=== PATIENT | female | born 1970 | race Hispanic/Latino ===

== ENCOUNTER 2019-09-24 23:02 | Emergency (ER) | payer SELFPAY ==
[2019-09-24 23:45] LABS: #Basophils 0.1 thou/uL (0.0-0.2); #Eosinphils 0.1 thou/uL (0.0-0.7); #Lymphocytes 1.5 thou/uL (1.20-3.40); #Neutrophils 6.2 thou/uL (1.40-6.50); %Basophils 0.7 % (0.0-1.0); %Eosinophils 0.9 % (0.0-10.0); %Lymphocytes 17.2 % (21.0-51.0); %Monocytes 10.8 % (0.0-10.0); %Neutrophils 70.4 % (42.0-75.0); Hemoglobin 13.8 g/dL (12.0-16.0); Mean Corpuscular HGB CONC 32.5 g/dL (32.0-36.0); Mean Corpuscular Hemoglobin 31.7 pg (27.0-31.0); Mean Corpuscular Volume 97.5 fL (78.0-98.0); Mean Platelet Volume 8.4 fL (7.4-10.4); Platelet Count 289 thou/uL (130-400); RBC Distribution Width 12.1 % (11.5-14.5); Red Blood Cell (RBC) Count 4.36 mill/uL (4.20-5.40); White Blood Cell (WBC) Count 8.7 thou/uL (4.8-10.8)
[2019-09-25 00:09] LABS: ALT (SGPT) 16 U/L (8-55); AST (SGOT) 19 U/L (5-34); Albumin 4.2 g/dL (3.5-5.0); Alkaline Phosphatase 103 U/L (40-110); Anion Gap 11 mmol/L (10-20); BUN (Urea Nitrogen) 11 mg/dL (7.0-18.7); Bilirubin, Total 0.2 mg/dL (0.2-1.2); Calc. Creatinine Clearance 0 mL/min (70-130); Carbon Dioxide 22 mmol/L (22-29); Chloride 109 mmol/L (98-107); Estimated GFR-MDRD 89; Glucose 102 mg/dL (70-105); Potassium 3.9 mmol/L (3.5-5.1); Protein, Total 7.2 g/dL (6.0-8.3); Sodium 138 mmol/L (136-145)
== END 2019-09-25 03:15 | disposition home or self-care (01) ==
LOC: ERS 23:02
DX: R11.0 Nausea (principal); M79.7 Fibromyalgia
CPT/HCPCS: 36415; 80053; 85025; 93005

== ENCOUNTER 2020-01-23 09:43 | Outpatient (CLI) | payer OTHER | END 2020-01-23 09:44 | disposition home or self-care (01) | LOC: CTENTCT 09:43 | PROVIDERS: ATTEND Specialist | DX: R51.9 Headache, unspecified (principal) | CPT/HCPCS: 70486 ==

== ENCOUNTER 2020-02-26 09:22 | Outpatient (CLI) | payer OTHER ==
--- NOTE | 2020-02-26 12:43 | MRI ---
MRI BRAIN WITH AND WITHOUT IV CONTRAST: HISTORY: A 49-year-old female with muscle tension headaches. COMPARISON: None. FINDINGS: No restricted diffusion is seen. No evidence of infarct, hemorrhage, mass, midline shift, or abnorma l extraaxial fluid collections are seen. The ventricular size is normal and the basilar cisterns are patent. No abnormal post contrast enhancement is seen. The visualized paranasal sinuses and mastoi d air cells are well aerated. No tonsillar herniation is seen. IMPRESSION: No evidence of acute intracranial process or mass. POS: AH
[2020-02-26] MEDS ORDERED: Magnevist 469MG/ML 20 ML VIAL ONE (13:33)
== END 2020-02-26 09:23 | disposition home or self-care (01) ==
LOC: BICMRI 09:22
PROVIDERS: ATTEND Psychiatry & Neurology Neurology
DX: G44.209 Tension-type headache, unspecified, not intractable (principal)
CPT/HCPCS: 70553; A9579

== ENCOUNTER 2020-07-08 07:30 | Outpatient (CLI) | payer OTHER ==
[2020-07-08] MEDS ORDERED: Iopamidol-370 76% 500 ML 1 ML ONE (08:51)
== END 2020-07-08 07:31 | disposition home or self-care (01) ==
LOC: BICCT 07:30
PROVIDERS: ATTEND Internal Medicine Gastroenterology
DX: R63.4 Abnormal weight loss (principal); R62.7 Adult failure to thrive; K63.89 Other specified diseases of intestine
CPT/HCPCS: 74177; Q9967

== ENCOUNTER 2020-07-14 09:44 | Outpatient (CLI) | payer OTHER ==
[2020-07-14 21:45] LABS: SARS-CoV-2 PCR by NAA Not Detected (NotDetected)
== END 2020-07-14 09:45 | disposition home or self-care (01) ==
LOC: LABBT 09:44
PROVIDERS: ATTEND Internal Medicine Gastroenterology
DX: Z01.812 Encounter for preprocedural laboratory examination (principal); Z20.822 Contact with and (suspected) exposure to COVID-19
CPT/HCPCS: 87635; U0003; U0005

== ENCOUNTER 2020-08-01 08:54 | Outpatient (CLI) | payer OTHER | END 2020-08-01 08:55 | disposition home or self-care (01) | LOC: RAD 08:54 | PROVIDERS: ATTEND Internal Medicine Gastroenterology | DX: K50.00 Crohn's disease of small intestine without complications (principal) | CPT/HCPCS: 74250 ==

== ENCOUNTER 2020-08-04 12:14 | Outpatient (CLI) | payer OTHER | END 2020-08-04 12:15 | disposition home or self-care (01) | LOC: BICRAD 12:14 | PROVIDERS: ATTEND Physician Assistant Medical | DX: K52.9 Noninfective gastroenteritis and colitis, unspecified (principal); R63.4 Abnormal weight loss | CPT/HCPCS: 71046 ==

== ENCOUNTER 2021-06-22 08:49 | Outpatient (CLI) | payer OTHER | END 2021-06-22 08:50 | disposition home or self-care (01) | LOC: BICMRI 08:49 | PROVIDERS: ATTEND Plastic Surgery | DX: T85.43XA Leakage of breast prosthesis and implant, initial encounter (principal); T85.44XA Capsular contracture of breast implant, initial encounter; N63.20 Unspecified lump in the left breast, unspecified quadrant | CPT/HCPCS: A9577; C8908 ==

== ENCOUNTER 2021-06-24 14:57 | Outpatient (CLI) | payer SELFPAY ==
[2021-06-25 12:18] LABS: SARS-CoV-2 PCR by NAA Not Detected (NotDetected)
== END 2021-06-24 14:58 | disposition home or self-care (01) ==
LOC: LABBT 14:57
PROVIDERS: ATTEND Plastic Surgery
DX: Z20.822 Contact with and (suspected) exposure to COVID-19 (principal)
CPT/HCPCS: U0003; U0005

== ENCOUNTER 2021-06-26 10:50 | Day surgery (SDC) | payer OTHER ==
[2021-06-25 11:37] VITALS: BMI 15.0
[2021-06-26] MEDS ORDERED: EPINEPHrine 1 MG/ML AMP ONE (11:44)
[2021-06-26] MEDS ORDERED: Bupivacaine 0.25% 10 ML VIAL ONE (11:44)
[2021-06-26] MEDS ORDERED: Promethazine HCl 25 MG/ML VIAL ONE (12:00)
[2021-06-26] MEDS ORDERED: Fentanyl 250 MCG/5 ML VIAL ONE (12:00)
[2021-06-26 13:34] LABS: INR-International Normal Ratio 1.1
[2021-06-26 13:35] LABS: PTT 30.2 sec (22.9-36.1)
[2021-06-26 13:37] LABS: EPI 92 SEC (67-199)
[2021-06-26 13:39] LABS: Platelet Count 284 thou/uL (130-400)
[2021-06-29 10:10] LABS: Factor VIII Test 202.3 % ACTIVE (56-157)
== END 2021-06-26 13:10 | disposition home or self-care (01) ==
LOC: SDC 10:50
PROVIDERS: ATTEND Plastic Surgery
DX: Z41.1 Encounter for cosmetic surgery (principal); Z53.8 Procedure and treatment not carried out for other reasons
CPT/HCPCS: 85049; 85240; 85245; 85246; 85247; 85610; 85730; J0171; J2550; J3010; J3370; S0020

== ENCOUNTER 2021-07-09 15:48 | Emergency (ER) | payer SELFPAY ==
[2021-07-09 16:38] LABS: #Eosinphils 0.1 thou/uL (0.0-0.7); #Lymphocytes 1.5 thou/uL (1.20-3.40); #Monocytes 0.7 thou/uL (0.11-0.59); #Neutrophils 4.6 thou/uL (1.40-6.50); %Basophils 0.7 % (0.0-1.0); %Eosinophils 1.1 % (0.0-10.0); %Lymphocytes 21.3 % (21.0-51.0); %Monocytes 10.4 % (0.0-10.0); %Neutrophils 66.6 % (42.0-75.0); Mean Corpuscular HGB CONC 33.8 g/dL (32.0-36.0); Mean Corpuscular Volume 97.6 fL (78.0-98.0); Mean Platelet Volume 8.9 fL (7.4-10.4); Platelet Count 288 thou/uL (130-400); RBC Distribution Width 11.4 % (11.5-14.5); Red Blood Cell (RBC) Count 3.65 mill/uL (4.20-5.40); White Blood Cell (WBC) Count 6.9 thou/uL (4.8-10.8)
[2021-07-09 16:57] LABS: ALT (SGPT) 15 U/L (8-55); AST (SGOT) 19 U/L (5-34); Albumin 4.2 g/dL (3.5-5.0); Alkaline Phosphatase 105 U/L (40-110); Anion Gap 12 mmol/L (10-20); BUN (Urea Nitrogen) 13 mg/dL (9.8-20.1); Bilirubin, Total 0.5 mg/dL (0.2-1.2); Calc. Creatinine Clearance 0 mL/min (70-130); Calcium 10.2 mg/dL (7.8-10.44); Carbon Dioxide 25 mmol/L (22-29); Chloride 103 mmol/L (98-107); Globulin 3.1 g/dL (2.4-3.5); Glucose 98 mg/dL (70-105); Potassium 3.8 mmol/L (3.5-5.1); Protein, Total 7.3 g/dL (6.0-8.3); Sodium 136 mmol/L (136-145)
[2021-07-09 19:05] LABS: Bacteria/HPF None Seen HPF (None Seen); Bilirubin Negative (Negative); Blood, Urine Trace (Negative); Clarity Clear (Clear); Glucose, Urine (Dipstick) Normal (Negative); Ketone, Urine Negative (Negative); Leukocyte Negative Leu/uL (Negative); Nitrite Negative (Negative); Protein, Urine (Dipstick) Negative (Neg-Trace); RBC/HPF 0-3 HPF (0-3); Specific Gravity, Urine 1.006 (1.002-1.036); Squamous Epithelial 0-3 HPF (0-3); Urobilinogen Normal mg/dL (Less than 2); WBC/HPF 0-3 HPF (0-3)
== END 2021-07-09 21:51 | disposition short-term general hospital (02) ==
LOC: ERS 15:48
DX: T81.32XA Disruption of internal operation (surgical) wound, not elsewhere classified, initial encounter (principal)
CPT/HCPCS: 36415; 80053; 81003; 81015; 85025; 99283

== ENCOUNTER 2021-07-13 08:17 | Outpatient (CLI) | payer OTHER | END 2021-07-13 08:18 | disposition home or self-care (01) | LOC: ULT 08:17 | PROVIDERS: ATTEND Physician Assistant Medical | DX: R10.13 Epigastric pain (principal); K82.4 Cholesterolosis of gallbladder | CPT/HCPCS: 76705; 78264; A9541 ==

== ENCOUNTER 2021-07-23 13:53 | Outpatient (CLI) | payer OTHER ==
[2021-07-24 00:17] LABS: SARS-CoV-2 PCR by NAA Not Detected (NotDetected)
== END 2021-07-23 13:54 | disposition home or self-care (01) ==
LOC: LABBT 13:53
PROVIDERS: ATTEND Plastic Surgery
DX: Z01.818 Encounter for other preprocedural examination (principal); T85.44XA Capsular contracture of breast implant, initial encounter; Z20.822 Contact with and (suspected) exposure to COVID-19
CPT/HCPCS: 93005; 93010; U0003; U0005

== ENCOUNTER 2021-07-24 14:15 | Observation (INO) | payer SELFPAY ==
[2021-07-23 10:58] VITALS: BMI 15.8
[2021-07-24] MEDS ORDERED: Heparin 5,000 UNITS/ML VIAL ONE (14:33)
[2021-07-24] MEDS ORDERED: fentaNYL Citrate/PF 100 MCG/2 ML SYRINGE ONE (14:38)
[2021-07-24] MEDS ORDERED: Famotidine/PF 20 mg/2ml Vial ONE (14:38)
[2021-07-24] MEDS ORDERED: EPINEPHrine 1 MG/ML AMP ONE (14:39)
[2021-07-24] MEDS ORDERED: Bupivacaine 0.25% 10 ML VIAL ONE (14:39)
[2021-07-24] MEDS ORDERED: Tranexamic Acid 1,000 MG/10 ML VIAL ONE (14:48)
[2021-07-24] MEDS ORDERED: CEFAZOLIN 2 GM VIAL ONE (15:05)
[2021-07-24] MEDS ORDERED: Sodium Chloride 0.9% 100 ML ONE (15:05)
[2021-07-24] MEDS ORDERED: Glycopyrrolate 0.2 MG/ML 5 ML SYRINGE ONE (15:19)
[2021-07-24] MEDS ORDERED: Dexamethasone 20 MG/5 ML VIAL ONE (15:19)
[2021-07-24] MEDS ORDERED: Ondansetron PF 4 MG/2 ML Vial ONE (15:19)
[2021-07-24] MEDS ORDERED: Lidocaine 1% PF 5 ML VIAL ONE (15:19)
[2021-07-24] MEDS ORDERED: PROPOFOL 200 MG/20 ML VIAL ONE (15:19)
[2021-07-24] MEDS ORDERED: Neomycin-Polymyxin 1 ML AMP ONE (16:07)
[2021-07-24] MEDS ORDERED: HYDROmorphone 0.5 MG/0.5 ML SYRINGE ONE ×2 (16:19→16:20)
[2021-07-24] MEDS ORDERED: Ondansetron HCl/PF 4 MG/2 ML Vial IVP PRN (17:23)
[2021-07-24] MEDS ORDERED: HYDROmorphone 2 MG/ML VIAL SLOW IVP PRN (17:23)
[2021-07-24] MEDS ORDERED: Promethazine HCl 25 MG/ML VIAL IM PRN (17:23)
[2021-07-24] MEDS ORDERED: Meperidine HCl/PF 25 MG/ML VIAL SLOW IVP PRN (17:23)
[2021-07-24] MEDS ORDERED: Promethazine HCl 25 MG/ML VIAL IVPB PRN (17:23)
[2021-07-24] MEDS ORDERED: Morphine Sulfate 2 MG/ML SYRINGE SLOW IVP PRN (17:23)
[2021-07-24] MEDS ORDERED: Milk Of Magnesia 30 ML UDCUP PO PRN (19:13)
[2021-07-24] MEDS ORDERED: HYDROcodone/Acetaminophen 5/325 mg Tablet PO PRN ×2 (19:15)
[2021-07-24] MEDS ORDERED: Benzonatate 100 MG CAP PO PRN ×2 (19:15)
[2021-07-24] MEDS ORDERED: Simethicone Chewable 80 MG TAB PO PRN (19:15)
[2021-07-24] MEDS ORDERED: Metoclopramide HCl 10 MG/2 ML VIAL IVP PRN (19:15)
[2021-07-24] MEDS ORDERED: Calcium Carbonate 500 MG ChewTAB PO PRN ×2 (19:15)
[2021-07-24] MEDS ORDERED: Ondansetron PF 4 MG/2 ML Vial IVP PRN (19:15)
[2021-07-24] MEDS ORDERED: Cepastat Lozenges 1 LOZ PO PRN (19:15)
[2021-07-24] MEDS ORDERED: GUAIFENESIN DM SF 5 ML UDCUP PO PRN (19:15)
[2021-07-24] MEDS ORDERED: Promethazine HCl 12.5 MG in Sodium Chloride 0.9% 50 ML IVPB PRN (19:15)
[2021-07-24] MEDS ORDERED: Zolpidem Tartrate 5 MG TAB PO PRN (19:15)
[2021-07-24] MEDS ORDERED: diphenhydrAMINE 25 MG CAP PO PRN ×2 (19:15)
[2021-07-24] MEDS ORDERED: Morphine 2 MG/ML VIAL SLOW IVP PRN (19:21)
[2021-07-24] MEDS ORDERED: traMADol HCl 50 MG TAB PO PRN ×2 (19:30)
[2021-07-24] MEDS ORDERED: Gabapentin 300 MG CAP PO SCH (21:00)
[2021-07-24] MEDS: Heparin 5,000 UNITS/ML VIAL SC SCH (21:15)
[2021-07-24] MEDS: CEFAZOLIN 1 GM in Sodium Chloride 0.9% 100 ML IVPB SCH (21:16)
[2021-07-24] MEDS: 1/2 NS w/KCL 20 mEq 1,000 ML IV SCH (21:16)
[2021-07-25] MEDS: Acetaminophen 325 MG TAB PO PRN ×2 (06:13→18:38)
[2021-07-25] MEDS: CEFAZOLIN 1 GM in Sodium Chloride 0.9% 100 ML IVPB SCH ×2 (06:14→12:57)
[2021-07-25] MEDS: Heparin 5,000 UNITS/ML VIAL SC SCH ×2 (06:15→12:59)
[2021-07-25] MEDS: 1/2 NS w/KCL 20 mEq 1,000 ML IV SCH ×2 (06:21→15:48)
[2021-07-25 19:42] VITALS: BP 102/66; TEMP 98.2
== END 2021-07-25 19:52 | disposition home or self-care (01) ==
LOC: SDC 14:15 → SURG B 19:08
PROVIDERS: ADMIT Plastic Surgery; ATTEND Plastic Surgery
PROC: 0HPU0JZ Removal of Synthetic Substitute from Left Breast, Open Approach (ICD-10-PCS; principal; 2021-07-24)
PROC: 0HPT0JZ Removal of Synthetic Substitute from Right Breast, Open Approach (ICD-10-PCS; 2021-07-24)
DX: T85.898A Other specified complication of other internal prosthetic devices, implants and grafts, initial encounter (principal); T85.44XA Capsular contracture of breast implant, initial encounter; N62 Hypertrophy of breast; M54.12 Radiculopathy, cervical region; Y81.2 Prosthetic and other implants, materials and accessory general- and plastic-surgery devices associated with adverse incidents
CPT/HCPCS: 88112; 88184; 88300; 88304; 88305; 96365; 96376; C1713; G0378; J0171; J0690; J1100; J1170; J1644; J2405; J2704; J3370; J3480; J3490; S0020; S0028

== ENCOUNTER 2021-09-21 14:43 | Outpatient (CLI) | payer OTHER | END 2021-09-21 14:44 | disposition home or self-care (01) | LOC: BICMAMMO 14:43 | DX: Z13.820 Encounter for screening for osteoporosis (principal); M81.0 Age-related osteoporosis without current pathological fracture | CPT/HCPCS: 77080 ==

== ENCOUNTER 2022-12-15 12:21 | Outpatient (CLI) | payer SELFPAY ==
[~2022-12-15 12:21] MED LIST: Iopamidol 370 76% 100 ML VIAL ONE
== END 2022-12-15 12:22 | disposition home or self-care (01) ==
LOC: CT 12:21
PROVIDERS: ATTEND Family Medicine
DX: E21.3 Hyperparathyroidism, unspecified (principal); R63.4 Abnormal weight loss; R10.13 Epigastric pain; R19.5 Other fecal abnormalities
CPT/HCPCS: 70492; 74177; Q9967

== ENCOUNTER 2024-03-09 10:38 | Outpatient (CLI) | payer OTHER | END 2024-03-09 10:39 | disposition home or self-care (01) | LOC: BICMAMMO 10:38 | PROVIDERS: ATTEND Internal Medicine Endocrinology, Diabetes & Metabolism | DX: M81.8 Other osteoporosis without current pathological fracture (principal) | CPT/HCPCS: 77080 ==